=== PATIENT | female | born 1995 | race American Indian/Alaskan Native ===

== ENCOUNTER 2019-11-08 09:52 | Outpatient (CLI) | payer MEDICAID ==
[2019-11-08] MEDS ORDERED: LACTATED RINGERS 500 ML IV ONE (10:18)
[2019-11-08] MEDS ORDERED: TERBUTALINE 1 MG/1 ML INJ SUB-Q ONE ×2 (10:48→11:55)
[2019-11-08] MEDS ORDERED: ACETAMINOPHEN 500 MG TAB PO ONE (10:51)
[2019-11-08 11:19] VITALS: BP 113/67
[2019-11-08 11:23] LABS: Bilirubin,Urine NEG (Negative); Blood,Urine NEG (Negative); Color,Urine Yellow (Yellow); Mucus,Urine 2+ /HPF
[2019-11-08] MEDS ORDERED: LACTATED RINGERS 500 ML IV SCH (12:00)
== END 2019-11-08 12:40 | disposition home or self-care (01) ==
LOC: TRG 09:52 → APU 09:54 → TRG 12:40
PROVIDERS: ATTEND Obstetrics & Gynecology
DX: O26.893 Other specified pregnancy related conditions, third trimester (principal); R10.9 Unspecified abdominal pain; O62.9 Abnormality of forces of labor, unspecified; Z3A.30 30 weeks gestation of pregnancy
CPT/HCPCS: 59025; 81001; 87086; 96360; 96361; 96372; J3105; J7120

== ENCOUNTER 2019-11-29 09:18 | Outpatient (CLI) | payer MEDICAID ==
[2019-11-29 09:40] VITALS: BP 106/66
[2019-11-29] MEDS ORDERED: ACETAMINOPHEN 325 MG TAB PO PRN ×2 (10:23→11:54)
[2019-11-29] MEDS ORDERED: LACTATED RINGERS 500 ML IV ONE (10:30)
[2019-11-29 10:34] LABS: Bacteria,Urine 1+ /HPF (Negative); Bilirubin,Urine NEG (Negative); Blood,Urine NEG (Negative); Color,Urine Straw (Yellow); Mucus,Urine FEW /HPF; Protein,Urine <15 mg/dL mg/dL (Negative); Urobilinogen,Urine < 2.0 mg/dL (<2.0)
[2019-11-29] MEDS ORDERED: NIFEdipine*For Tocolysis only* 10 MG CAPSULE PO ONE (12:00)
[2019-11-29 12:38] LABS: Hematocrit 30.8 % (30.3-42.9); Hemoglobin 10.6 gm/dl (10.1-14.3); Mean Corpuscular HGB Conc 35 % (30-34); Mean Corpuscular Volume 93 fl (79-97); Platelet Count 164 K/mm3 (140-440); Red Cell Distribution Width 12.5 % (13.2-15.2)
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
[2019-11-29 13:57] LABS: Amphetamine Screen,Urine Negative; Benzodiazepines Screen,Urine Negative; Cannabinoid Screen,Urine Negative; Cocaine Screen,Urine Negative; Methadone Screen,Urine Negative; Opiate Screen,Urine Negative
== END 2019-11-29 15:40 | disposition home or self-care (01) ==
LOC: APU 09:18 → TRG 09:18
PROVIDERS: ATTEND Obstetrics & Gynecology
DX: O26.893 Other specified pregnancy related conditions, third trimester (principal); R10.30 Lower abdominal pain, unspecified; Z3A.33 33 weeks gestation of pregnancy
CPT/HCPCS: 36415; 59025; 76815; 76819; 80307; 81001; 85027; 86850; 86900; 86901; J7120

== ENCOUNTER 2019-12-18 10:35 | Outpatient (CLI) | payer MEDICAID ==
[2019-12-18 11:16] VITALS: BP 104/55
[2019-12-18] MEDS ORDERED: LACTATED RINGERS 1,000 ML ONE (11:46)
[2019-12-18] MEDS ORDERED: LACTATED RINGERS 1,000 ML IV SCH (12:00)
[2019-12-18 12:27] LABS: Bilirubin,Urine NEG (Negative); Blood,Urine NEG (Negative); Color,Urine Straw (Yellow); Mucus,Urine FEW /HPF; Protein,Urine <15 mg/dL mg/dL (Negative); Urobilinogen,Urine < 2.0 mg/dL (<2.0)
== END 2019-12-18 13:57 | disposition home or self-care (01) ==
LOC: TRG 10:35 → APU 10:36 → TRG 13:57
PROVIDERS: ATTEND Obstetrics & Gynecology
DX: O26.893 Other specified pregnancy related conditions, third trimester (principal); R10.30 Lower abdominal pain, unspecified; O47.03 False labor before 37 completed weeks of gestation, third trimester; Z3A.36 36 weeks gestation of pregnancy
CPT/HCPCS: 59025; 81001; 96360

== ENCOUNTER 2020-04-22 21:10 | Emergency (ER) | payer MEDICAID ==
--- NOTE | 2020-04-22 21:39 | Emergency Department Report ---
Blank Doc - Documentation Documentation: This is a 25-year-old female that presents with generalized abdominal pain with nausea vomiting that started yesterday. 1- This initial assessment/diagnostic orders/clinical plan/ treatment(s) is/are subject to change based on pt's health status, clinical progression and re-as sessment by fellow clinical providers in the ED. Further treatment and workup at subsequent clinical provers discretion. Patient/guardians urged not to elope from ED as their condition may be serious if not clinically assessed and managed. 2-labs 3-UA
[2020-04-22 21:50] VITALS: BP 130/66
[2020-04-22 22:46] LABS: Hematocrit 41.9 % (30.3-42.9); Hemoglobin 14.1 gm/dl (10.1-14.3); Mean Corpuscular HGB Conc 34 % (30-34); Mean Corpuscular Volume 92 fl (79-97); Platelet Count 182 K/mm3 (140-440); Red Blood Count 4.56 M/mm3 (3.65-5.03); Red Cell Distribution Width 14.6 % (13.2-15.2)
[2020-04-22 23:06] LABS: Alanine Aminotransferase 25 units/L (7-56); Albumin 4.6 g/dL (3.9-5); Blood Urea Nitrogen 13 mg/dL (7-17); Calcium 9.3 mg/dL (8.4-10.2); Hemolysis Index 39
[2020-04-22 23:37] LABS: BUN/Creatinine Ratio 22
[2020-04-23 00:18] LABS: Total Cells Counted 100
[2020-04-23 00:19] LABS: Platelet Estimate Consistent w Auto
[2020-04-23 01:48] LABS: Bilirubin,Urine NEG (Negative); Blood,Urine NEG (Negative); Color,Urine Yellow (Yellow); Mucus,Urine FEW /HPF; Urobilinogen,Urine < 2.0 mg/dL (<2.0)
[2020-04-23 01:51] LABS: HCG Qualitative,Urine Negative (Negative)
--- NOTE | 2020-04-23 02:49 | Emergency Department Report ---
ED Abdominal Pain HPI - General Chief Complaint: Abdominal Pain Stated Complaint: N/V ABDOMINAL PAIN PUI?: No Time Seen by Provider: 04/23/20 02:27 Source: patient Mode of arrival: Stretcher Limitations: No Limitations - History of Present Illness Initial Comments: Patient is a 25-year-old female who presents emergency room with complaints of generalized abdominal pain, nausea, vomiting, diarrhea. Patient states she ate seafood for the first time at a new restaurant last night. Patient states that her symptoms started at 6 AM yesterday. Patient states that her symptoms were worsening but since waiting in the waiting room her nausea has resolved and her pain has improved.. Patient states that when she arrived to the ER pain was a 7 out of 10. Patient states her pain now is a 3 out of 10. Patient states that her pain is better with rest and worse with movement and vomiting. Patient denies fever and chills. Patient denies blood in her vomitus. Patient denies blood in her diarrhea. Patient states that she had cramping sensation in her abdomen. Patient denies fever and chills. Patient denies shortness of breath. Patient denies chest pain. Patient denies recent travel. Patient denies recent international travel. Patient denies exposure to the novel coronavirus. Patient denies sick contacts. Patient denies fever and chills. Patient denies cough. Patient denies coming in contact with anybody with symptoms of the novel coronavirus. Patient's last menstrual period was April 07, 2020. Complaint: abdominal pain -: Sudden Location: diffuse Radiation: none Migration to: no migration Quality: cramping Consistency: other Improves With: rest Worsens With: vomiting, movement Context: possible food poisoning Associated Symptoms: nausea, vomiting, diarrhea. denies: fever, chills, constipation, dysuria, hematochezia, melena, hematuria, anorexia, syncope - Related Data Previous Rx's Medication Instructions Recorded Last Taken Type Ondansetron [Zofran Odt] 4 mg PO Q6HR PRN #20 tab.rapdis 04/23/20 Unknown Rx Allergies Allergy/AdvReac Type Severity Reaction Status Date / Time No Known Allergies Allergy Verified 08/01/15 08:27 ED Review of Systems ROS: Stated complaint: N/V ABDOMINAL PAIN Other details as noted in HPI Constitutional: denies: chills, fever Eyes: denies: eye pain, eye discharge, vision change ENT: denies: ear pain, throat pain Respiratory: denies: cough, shortness of breath, wheezing Cardiovascular: denies: chest pain, palpitations Endocrine: no symptoms reported. denies: intolerance to heat Gastrointestinal: as per HPI, abdominal pain, nausea, vomiting, diarrhea. denies: constipation, hematemesis, melena, hematochezia Genitourinary: denies: urgency, dysuria, discharge Musculoskeletal: denies: back pain, joint swelling, arthralgia Skin: denies: rash, lesions Neurological: denies: headache, weakness, paresthesias Psychiatric: denies: anxiety, depression Hematological/Lymphatic: denies: easy bleeding, easy bruising ED Past Medical Hx - Past Medical History Previous Medical History?: No Hx Hypertension: No Hx Heart Attack/AMI: No Hx Congestive Heart Failure: No Hx Diabetes: No Hx Deep Vein Thrombosis: No Hx Renal Disease: No Hx Sickle Cell Disease: No Hx Seizures: No Hx Asthma: No Hx COPD: No Hx HIV: No - Surgical History Past Surgical History?: No - Family History Family history: no significant - Social History Smoking Status: Never Smoker Substance Use Type: None - Medications Home Medications: Home Medications Medication Instructions Recorded Confirmed Last Taken Type Ondansetron [Zofran Odt] 4 mg PO Q6HR PRN #20 tab.rapdis 04/23/20 Unknown Rx ED Physical Exam - General Limitations: No Limitations General appearance: alert, in no apparent distress - Head Head exam: Present: atraumatic, normocephalic - Eye Eye exam: Present: normal appearance - ENT ENT exam: Present: mucous membranes moist - Neck Neck exam: Present: normal inspection - Respiratory Respiratory exam: Present: normal lung sounds bilaterally. Absent: respiratory distress - Cardiovascular Cardiovascular Exam: Present: regular rate, normal rhythm. Absent: systolic murmur, diastolic murmur, rubs, gallop - GI/Abdominal GI/Abdominal exam: Present: soft, normal bowel sounds. Absent: distended, tenderness, guarding - Extremities Exam Extremities exam: Present: normal inspection - Back Exam Back exam: Present: normal inspection - Neurological Exam Neurological exam: Present: alert, oriented X3 - Psychiatric Psychiatric exam: Present: normal affect, normal mood - Skin Skin exam: Present: warm, dry, intact, normal color. Absent: rash ED Course Vital Signs 04/22/20 04/23/20 21:47 03:22 Temperature 98.4 F Pulse Rate 79 Respiratory 18 14 Rate Blood Pressure 130/66 O2 Sat by Pulse 100 Oximetry - Reevaluation(s) Reevaluation #1: I discussed all results and clinical findings with patient. I discussed plan of care with patient. Patient agrees with plan of care. Patient is stable for discharge. Patient will be discharged home. Patient given discharge instructions. Patient voiced understanding of discharge instructions. 04/23/20 02:47 ED Medical Decision Making - Lab Data Result diagrams: 04/22/20 21:51 04/22/20 21:51 - Medical Decision Making Patient is a 25-year-old female that presents emergency room with complaints of generalized abdominal pain, nausea, vomiting, diarrhea after eating seafood in the restaurant. Patient states her symptoms started yesterday at 6 AM. Patient states that her symptoms are worsening prior to arriving to the ER. Patient states while waiting in the waiting room her symptoms have improved. Patient had labs done which were essentially unremarkable. Patient's urine is negative. Patient's hCG is negative. Patient's exam is negative. Patient is nontender over her abdomen. Patient is not having any further nausea or vomiting. Patient's abdominal pain also improved while in ER. Patient's clinical findings except with gastroenteritis and food toxicity. Patient given a Zofran ODT while in ER. Patient states that she felt much better after the Zofran. Patient tolerated p.o. water. Patient is stable for discharge. Patient was discharged home. - Differential Diagnosis Gastroenteritis, food toxicity, nausea, vomiting, diarrhea, abdominal pain. Critical care attestation.: If time is entered above; I have spent that time in minutes in the direct care of this critically ill patient, excluding procedure time. ED Disposition Clinical Impression: Gastroenteritis, Nausea vomiting and diarrhea Abdominal pain Qualifiers: Abdominal location: generalized Qualified Code(s): R10.84 - Generalized abdo ni pain Nausea & vomiting Qualifiers: Vomiting type: unspecified Vomiting Intractability: non-intractable Qualified Code(s): R11.2 - Nausea with vomiting, unspecified Diarrhea Qualifiers: Diarrhea type: unspecified type Qualified Code(s): R19.7 - Diarrhea, unspecified Disposition: - TO HOME OR SELFCARE Is pt being admited?: No Does the pt Need Aspirin: No Condition: Stable Instructions: Viral Gastroenteritis, Adult, Abdominal Pain, Adult, Food Choices to Help Relieve Diarrhea, Adult, Nausea and Vomiting, Adult, Probiotics, Abdominal Pain (ED) Additional Instructions: Patient to follow-up with primary care in 2 to 3 days. Patient to eat a brat diet. Patient to increase clear fluids.. Patient to rest. Patient to increase water. Patient to take Tylenol or ibuprofen as needed for pain. Patient to take meds as directed. Patient to return to the ER if condition worsens, changes or new symptoms arise. Prescriptions: Ondansetron [Zofran Odt] 4 mg PO Q6HR PRN #20 tab.rapdis PRN Reason: Nausea And Vomiting Referrals: PRIMARY CARE, [Primary Care Provider] - 2-3 Days Time of Disposition: 02:51
[2020-04-23] MEDS ORDERED: ONDANSETRON 4 MG ODT TAB PO ONE (03:15)
== END 2020-04-23 03:22 | disposition home or self-care (01) ==
LOC: ED 21:10
DX: K52.9 Noninfective gastroenteritis and colitis, unspecified (principal); R11.2 Nausea with vomiting, unspecified; R10.84 Generalized abdominal pain; Z79.899 Other long term (current) drug therapy
CPT/HCPCS: 36415; 80053; 81001; 81025; 83690; 85007; 85025; Q0162

== ENCOUNTER 2020-08-19 16:53 | Emergency (ER) | payer MEDICAID, OTHER ==
[2020-08-19 17:04] VITALS: BP 109/71
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
--- NOTE | 2020-08-19 17:44 | XRay Report ---
Left foot radiograph, 3 views. HISTORY: Pain COMPARISON: None FINDINGS: No acute fracture or malalignment. Lisfranc interval is preserved. No focal soft tissue abn ormality. IMPRESSION: No acute process Signer Name: Kaleb Mejia MD Signed: 08/19/2020 5:40 PM Workstation Name: [id number]
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
[2020-08-19] MEDS ORDERED: IBUPROFEN 800 MG TAB PO ONE (17:47)
== END 2020-08-19 18:36 | disposition home or self-care (01) ==
LOC: ED 16:53
DX: M79.18 Myalgia, other site (principal); Z79.899 Other long term (current) drug therapy; V49.49XA Driver injured in collision with other motor vehicles in traffic accident, initial encounter; Y92.410 Unspecified street and highway as the place of occurrence of the external cause; Y93.89 Activity, other specified; Y99.8 Other external cause status

== ENCOUNTER 2021-04-22 19:41 | Emergency (ER) | payer MEDICAID ==
[2021-04-22 20:28] VITALS: BP 120/70
[2021-04-22] MEDS ORDERED: BUTALB/ACETAMINOPHEN/CAFFEINE TAB PO ONE (21:35)
[2021-04-22] MEDS ORDERED: IBUPROFEN 600 MG TAB PO ONE (21:35)
[2021-04-22] MEDS ORDERED: ONDANSETRON 4 MG ODT TAB PO ONE (21:36)
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
== END 2021-04-22 22:54 | disposition home or self-care (01) ==
LOC: ED 19:41
DX: S13.8XXA Sprain of joints and ligaments of other parts of neck, initial encounter (principal); S46.812A Strain of other muscles, fascia and tendons at shoulder and upper arm level, left arm, initial encounter; S46.811A Strain of other muscles, fascia and tendons at shoulder and upper arm level, right arm, initial encounter; G44.309 Post-traumatic headache, unspecified, not intractable; Z79.899 Other long term (current) drug therapy; Y04.8XXA Assault by other bodily force, initial encounter; Y93.89 Activity, other specified; Y92.89 Other specified places as the place of occurrence of the external cause; Y99.8 Other external cause status
CPT/HCPCS: 70450; 72125; 99283; J3490; Q0162